=== PATIENT | female | born 1990 | race Caucasian/White ===

== ENCOUNTER → 2017-09-10 12:29 | Outpatient (CLI) | payer OTHER, SELFPAY ==
[2017-09-10 15:12] LABS: Urine N gonorrhoeae NOT DETECTED
[2017-09-10 15:27] LABS: Urine Chlamydia DETECTED
[2017-09-10 16:38] LABS: Hepatitis B Surface Antigen NEGATIVE s/c (NEGATIVE)
[2017-09-10 16:56] LABS: HIV 1 and 2 Antibody NEGATIVE (NEGATIVE); Hep C Virus Ab w/Reflex Quant NEGATIVE s/c (NEGATIVE)
[2017-09-19 09:48] LABS: Rapid Plasma Reagin NON-REACTIVE
== END ==
PROVIDERS: Visit Provider Physician Assistant
DX: Z20.2 Contact with and (suspected) exposure to infections with a predominantly sexual mode of transmission (principal)
CPT/HCPCS: 36415; 86592; 86703; 86803; 87340; 87491; 87591